=== PATIENT | female | born 1995 | race Hispanic/Latino ===

== ENCOUNTER 2016-05-04 07:24 | Emergency (ER) | payer OTHER ==
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
[2016-05-04] MEDS ORDERED: PRENTAB9 PO (10:36)
[2016-05-04] MEDS ORDERED: LAMO25TA2 PO (10:36)
[2016-05-04] MEDS ORDERED: FERR325T3 PO (10:59)
[2016-05-04] MEDS ORDERED: ZYRT10CA PO (10:59)
[2016-05-04] MEDS ORDERED: PULM1SUS INH (10:59)
[2016-05-04] MEDS ORDERED: VITA100037 PO (10:59)
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
== END 2016-05-04 08:51 | disposition home or self-care (01) ==
LOC: M ED 07:24
DX: O26.892 Other specified pregnancy related conditions, second trimester (principal); Z04.1 Encounter for examination and observation following transport accident; V43.52XA Car driver injured in collision with other type car in traffic accident, initial encounter; Y92.410 Unspecified street and highway as the place of occurrence of the external cause; Y93.89 Activity, other specified; Y99.8 Other external cause status; Z3A.27 27 weeks gestation of pregnancy; O99.012 Anemia complicating pregnancy, second trimester; D64.9 Anemia, unspecified; O99.342 Other mental disorders complicating pregnancy, second trimester; F33.9 Major depressive disorder, recurrent, unspecified; O99.512 Diseases of the respiratory system complicating pregnancy, second trimester; J30.2 Other seasonal allergic rhinitis; Z79.899 Other long term (current) drug therapy

== ENCOUNTER 2016-05-04 08:53 | Outpatient (CLI) | payer OTHER ==
[~2016-05-04] VITALS: Ht 160 cm; Wt 65.0 kg
[2016-05-04] MEDS ORDERED: ALBUTEROL 90 MCG/ACT 8GM HFA INHALER INH PRN (10:30)
[2016-05-04] MEDS ORDERED: LAMO25TA2 PO (10:36)
[2016-05-04] MEDS ORDERED: PRENTAB9 PO (10:36)
[2016-05-04 10:41] LABS: MEAN CORPUSCULAR HGB CONC 34.8 g/dl (32.0-36.5); MEAN CORPUSCULAR VOLUME 80.3 fl (80.0-96.0); RED CELL DISTRIBUTION WIDTH 14.7 % (11.5-14.5)
[2016-05-04] MEDS ORDERED: ZYRT10CA PO (10:59)
[2016-05-04] MEDS ORDERED: PULM1SUS INH (10:59)
[2016-05-04] MEDS ORDERED: FERR325T3 PO (10:59)
[2016-05-04] MEDS ORDERED: VITA100037 PO (10:59)
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
[2016-05-04 11:01] LABS: INR 0.99
[2016-05-04] MEDS: lamoTRIgine 25 MG TAB PO SCH ×2 (12:08→21:08)
[2016-05-04] MEDS: BUDESONIDE 180MCG INHALER (PULMICORT FLEXHALER) INH SCH ×2 (12:08→21:09)
[2016-05-04] MEDS: VITAMIN D (CHOLECALCIFEROL) 400 INTERNATIONAL UNITS TAB PO SCH (12:08)
[2016-05-04] MEDS: PRENATAL VITAMIN TAB PO SCH (12:08)
[2016-05-04] MEDS: FERROUS SULFATE 325MG TAB PO SCH (12:08)
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
[2016-05-04] MEDS ORDERED: PERCOCET 5MG/325MG TAB PO ONE ×2 (14:45→22:00)
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
[2016-05-04 19:52] VITALS: BP 99/52
[2016-05-04] MEDS ORDERED: CETIRIZINE (ZyrTEC) 10 MG TAB PO SCH (21:00)
[2016-05-04 21:11] VITALS: BP 107/55
[2016-05-04 22:12] VITALS: BP 100/49
[2016-05-04 23:56] VITALS: BP 107/52
[2016-05-05 06:55] VITALS: BP 108/56
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
[2016-05-05 08:26] LABS: MEAN CORPUSCULAR HEMOGLOBIN 27.7 pg (27.0-33.0); MEAN CORPUSCULAR HGB CONC 34.2 g/dl (32.0-36.5); MEAN CORPUSCULAR VOLUME 80.9 fl (80.0-96.0); RED CELL DISTRIBUTION WIDTH 14.8 % (11.5-14.5); WHITE BLOOD COUNT 7.9 K/mm3 (4.0-10.0)
[2016-05-05 08:38] LABS: INR 1.07
[2016-05-05] MEDS: BUDESONIDE 180MCG INHALER (PULMICORT FLEXHALER) INH SCH (08:59)
[2016-05-05] MEDS: VITAMIN D (CHOLECALCIFEROL) 400 INTERNATIONAL UNITS TAB PO SCH (08:59)
[2016-05-05] MEDS: lamoTRIgine 25 MG TAB PO SCH (08:59)
[2016-05-05] MEDS: PRENATAL VITAMIN TAB PO SCH (08:59)
[2016-05-05] MEDS: FERROUS SULFATE 325MG TAB PO SCH (08:59)
== END 2016-05-05 09:15 | disposition home or self-care (01) ==
LOC: M LDO 08:53
PROVIDERS: ATTEND Midwife
DX: O26.892 Other specified pregnancy related conditions, second trimester (principal); Z3A.27 27 weeks gestation of pregnancy; O99.012 Anemia complicating pregnancy, second trimester; O99.342 Other mental disorders complicating pregnancy, second trimester; F33.9 Major depressive disorder, recurrent, unspecified; O99.512 Diseases of the respiratory system complicating pregnancy, second trimester; D64.9 Anemia, unspecified; J45.909 Unspecified asthma, uncomplicated

== ENCOUNTER 2016-06-14 23:42 | Emergency (ER) | payer OTHER ==
[~2016-06-14] VITALS: Ht 160 cm; Wt 70.3 kg
[~2016-06-14 23:42] MED LIST: FERR325T3 PO; LAMO25TA2 PO; PRENTAB9 PO; PULM1SUS INH; VITA100037 PO; ZYRT10CA PO
[2016-06-15 00:46] LABS: BASO % 0.3 % (0.0-1.0); EOS # 0.2 K/mm3 (0.0-0.50); EOS % 2.2 % (0.0-3.0); LARGE UNSTAINED CELL # 0.2 K/mm3 (0.0-0.4); LARGE UNSTAINED CELL % 2.3 % (0.0-4.0); LYMPH # 1.4 K/mm3 (1.5-6.5); LYMPH % 20.6 % (24.0-44.0); MEAN CORPUSCULAR HEMOGLOBIN 27.9 pg (27.0-33.0); MEAN CORPUSCULAR VOLUME 79.9 fl (80.0-96.0); MONO # 0.4 K/mm3 (0.0-0.8); NEUTROPHILS # 4.9 K/mm3 (1.8-7.7); NEUTROPHILS % 69.7 % (36.0-66.0); PLATELET COUNT, AUTOMATED 163 k/mm3 (150-450); RED CELL DISTRIBUTION WIDTH 15.2 % (11.5-14.5)
[2016-06-15 01:09] LABS: ALBUMIN 2.5 GM/DL (3.2-5.2); ALBUMIN/GLOBULIN RATIO 0.76 (1.00-1.93); ALKALINE PHOSPHATASE 75 U/L (45-117); ALT/SGPT 18 U/L (12-78); ANION GAP 10 MEQ/L (8-16); AST/SGOT 13 U/L (15-37); BILIRUBIN,DIRECT < 0.1 MG/DL (0.0-0.2); BILIRUBIN,TOTAL 0.3 MG/DL (0.2-1.0); BLOOD UREA NITROGEN 5 MG/DL (7-18); CALCIUM LEVEL 8.2 MG/DL (8.5-10.1); CARBON DIOXIDE LEVEL 23 MEQ/L (21-32); CHLORIDE LEVEL 106 MEQ/L (98-107); CREATININE FOR GFR 0.55 MG/DL (0.55-1.02); GLOMERULAR FILTRATION RATE > 60.0 (>60); GLUCOSE, FASTING 106 MG/DL (70-105); POTASSIUM SERUM 3.4 MEQ/L (3.5-5.1); SODIUM LEVEL 139 MEQ/L (136-145); TOTAL PROTEIN 5.8 GM/DL (6.4-8.2)
[2016-06-15 02:36] VITALS: BP 99/58
== END 2016-06-15 02:47 | disposition admitted as inpatient to this hospital (09) ==
LOC: EDBD 23:42 → M ED 06-15 01:02
DX: O99.353 Diseases of the nervous system complicating pregnancy, third trimester (principal); G40.909 Epilepsy, unspecified, not intractable, without status epilepticus; Z3A.33 33 weeks gestation of pregnancy; Z79.899 Other long term (current) drug therapy; J45.909 Unspecified asthma, uncomplicated

== ENCOUNTER 2016-06-15 02:48 | Outpatient (CLI) | payer OTHER ==
[2016-06-15 03:06] VITALS: BP 89/51
[2016-06-15 03:07] VITALS: BP 95/51
[2016-06-15 03:16] VITALS: BP 104/60
--- NOTE | 2016-06-15 05:33 | DSES ---
DATE OF ADMISSION: 06/15/2016 DATE OF DISCHARGE: 06/15/2016 This 21-year-old 1, para 0 called in saying that she had an issue with lightheadedness, dizziness and localizing numbness down her right arm and this was a preemptive when she has a seizure. Her seizure history is that in September 2016 she had experienced her first seizure, her last seizure was October 2016. She had an evaluation by neurology. She has had three electroencephalograms (EEGs), she does know the results of the three EEGs but she is on medication for her seizure disorder. She is presently 33+ weeks of gestation. She also has a history of depression, anemia, asthma, and as we noted, she has significant hypotension. LABORATORY DATA: Her labs show she is O+, HIV negative, hepatitis negative, RPR negative, quad was declined, rubella immune, Varicella nonimmune. Urine negative. Gonorrhea and chlamydia negative. Cystic fibrosis (CF) was negative. She had an echogenic focus although her anatomy scan was normal. She had a 1-hour glucose which was 140 and a 3-hour GTT was normal, 78/110/102/88. EXAMINATION: GENERAL: On examination she appears in no distress. She does not appear to have any issues. She is oriented in three gutiérrez. She has a category I strip, she is not in active labor. No vaginal bleeding or discharge or loss. VITAL SIGNS: Her blood pressures are low 95/51. Subsequently blood pressures with her diastolics under 50 which may be a contributing factor to her dizziness. Pulse is 70, respirations 18, temperature 97.9. Her urine is 10/10, pH of 6, positive for glucose, negative for ketones or nitrates. Hemoglobin is 10.3, hematocrit 29.1, platelets are 163. Her electrolytes are normal. Her glucose was 106. The rest of the examination is unremarkable. She has a category I strip. HEENT/NECK: She is normocephalic, atraumatic. Neck: Full range of motion. Pupils equal and reactive to light. She responds to questions. EXTREMITIES: Distal pulses are symmetric. No evidence of deep venous thrombosis (DVT) pulmonary embolus (PE) or superficial phlebitis. CHEST: No wheezes or rhonchi. ABDOMEN: Soft. Appropriate symphysis fundus height, four quadrant bowel sounds are noted, No rashes or lesions or pruritus. No arthralgia, myalgia. No complaints of cough, wheezes, shortness of breath or dyspnea on exertion. No chest pain. She is not bleeding. She appears to be neurologically complete. No issues in the bladder. No incontinency, urgency or frequency. No nausea, vomiting, diarrhea or constipation. Her glucose is evaluation has been established she has no significant history of tobacco or alcohol, drug abuse. She is to a soldier and there is no domestic SUMMARY: In summary we have a 33 weeker who had issues with lightheadedness possibly related to hypotension. She did not have a seizure, did not lose consciousness. Her anemia is low based. She has asthma but has not had a attack recently. She carries her nebulizer with her. We have given her precautions. She is discharged to follow up with the appropriate interval. The patient was discharged undelivered.
== END 2016-06-15 04:25 | disposition home or self-care (01) ==
LOC: M LDO 02:48
PROVIDERS: ATTEND Obstetrics & Gynecology
DX: O99.89 Other specified diseases and conditions complicating pregnancy, childbirth and the puerperium (principal); R42 Dizziness and giddiness; O99.413 Diseases of the circulatory system complicating pregnancy, third trimester; I95.9 Hypotension, unspecified; O99.353 Diseases of the nervous system complicating pregnancy, third trimester; G40.909 Epilepsy, unspecified, not intractable, without status epilepticus; Z3A.33 33 weeks gestation of pregnancy; O99.343 Other mental disorders complicating pregnancy, third trimester; F33.9 Major depressive disorder, recurrent, unspecified; O99.013 Anemia complicating pregnancy, third trimester; D64.9 Anemia, unspecified; O99.513 Diseases of the respiratory system complicating pregnancy, third trimester; J45.909 Unspecified asthma, uncomplicated; Z79.899 Other long term (current) drug therapy

== ENCOUNTER 2016-11-11 06:47 | Emergency (ER) | payer OTHER ==
[~2016-11-11 06:47] MED LIST changes: -VITA100037 PO; +VITA100067 PO
[2016-11-11] MEDS ORDERED: LAMI25TA PO (07:52)
[2016-11-11] MEDS ORDERED: lamoTRIgine 100MG TAB PO ONE (08:00)
[2016-11-11] MEDS ORDERED: lamoTRIgine 25 MG TAB PO ONE (08:00)
[2016-11-11 08:03] LABS: MEAN CORPUSCULAR HEMOGLOBIN 25.9 pg (27.0-33.0); MEAN CORPUSCULAR HGB CONC 34.6 g/dl (32.0-36.5); MEAN CORPUSCULAR VOLUME 74.8 fl (80.0-96.0); RED CELL DISTRIBUTION WIDTH 14.4 % (11.5-14.5); WHITE BLOOD COUNT 5.4 K/mm3 (4.0-10.0)
[2016-11-11 08:07] LABS: ANION GAP 10 MEQ/L (8-16); BLOOD UREA NITROGEN 9 MG/DL (7-18); CARBON DIOXIDE LEVEL 23 MEQ/L (21-32); CHLORIDE LEVEL 108 MEQ/L (98-107); CREATININE FOR GFR 0.86 MG/DL (0.55-1.02); GLOMERULAR FILTRATION RATE > 60.0 (>60); GLUCOSE, FASTING 90 MG/DL (70-105); POTASSIUM SERUM 3.6 MEQ/L (3.5-5.1); SODIUM LEVEL 141 MEQ/L (136-145)
[2016-11-11 08:55] LABS: BASOPHILS 1 % (0-4); EOSINOPHILS 8 % (0-5)
--- NOTE | 2016-11-11 09:50 | REP ---
Head CT without contrast: History: Headache. Closed head injury. Comparison study: Comparison study October 11, 2015. CT findings: Bone window settings demonstrate an intact bony calvarium. There is no evidence of skull fracture or incidental bony calvarial lesion. The visualized paranasal sinuses appear clear. No intraorbital abnormality is seen. On soft tissue window setting images; the lateral, third, and fourth ventricles are normal in size and position. Aguilar-white differentiation pattern is normal above and below the tentorium. There are is no evidence of intracranial hemorrhage. No mass, edema, infarction, or midline shift is seen. No extra-axial fluid collection is appreciated. Impression: Negative noncontrast head CT. Signed by Denny Frank MD 11/11/2016 09:41 A
[2016-11-11] MEDS ORDERED: KETOROLAC 30 MG/ML VIAL (J1885) IV ONE (10:00)
[2016-11-11 10:21] VITALS: BP 100/57
== END 2016-11-11 10:23 | disposition home or self-care (01) ==
LOC: M ED 06:47 → EDBD 06:47 → M ED 10:23
DX: G40.909 Epilepsy, unspecified, not intractable, without status epilepticus (principal); J45.909 Unspecified asthma, uncomplicated; Z79.899 Other long term (current) drug therapy
CPT/HCPCS: 36415; 70450; 80048; 80175; 85007; 85027; 96374; 99284; J1885

== ENCOUNTER 2017-01-22 10:07 | Emergency (ER) | payer OTHER ==
[~2017-01-22] VITALS: Ht 160 cm; Wt 63.6 kg
[~2017-01-22 10:07] MED LIST changes: +LAMI25TA PO
[2017-01-22] MEDS ORDERED: KEPP500T13 (10:20)
[2017-01-22] MEDS ORDERED: MIREIUD (10:20)
[2017-01-22] MEDS ORDERED: TIZA4CAP3 (10:20)
[2017-01-22 13:11] LABS: BASO % 0.6 % (0.0-1.0); EOS # 0.2 10^3/uL (0.0-0.50); EOS % 3.2 % (0.0-3.0); IMMATURE GRANULOCYTE % 0.2 % (0-0); LYMPH % 38.2 % (24.0-44.0); MEAN CORPUSCULAR HEMOGLOBIN 25.1 pg (27.0-33.0); MEAN CORPUSCULAR HGB CONC 33.7 g/dl (32.0-36.5); MEAN CORPUSCULAR VOLUME 74.3 fl (80.0-96.0); MONO # 0.4 10^3/uL (0.0-0.8); MONO % 6.6 % (0.0-5.0); NEUTROPHILS # 2.7 10^3/uL (1.8-7.7); NEUTROPHILS % 51.2 % (36.0-66.0); PLATELET COUNT, AUTOMATED 272 10^3/uL (150-450); RED CELL DISTRIBUTION WIDTH 13.7 % (11.5-14.5); WHITE BLOOD COUNT 5.3 10^3/uL (4.0-10.0)
[2017-01-22 13:35] LABS: ANION GAP 7 MEQ/L (8-16); BLOOD UREA NITROGEN 7 MG/DL (7-18); CALCIUM LEVEL 9.1 MG/DL (8.5-10.1); CARBON DIOXIDE LEVEL 26 MEQ/L (21-32); CHLORIDE LEVEL 107 MEQ/L (98-107); GLOMERULAR FILTRATION RATE > 60.0 (>60); GLUCOSE, FASTING 84 MG/DL (70-105); POTASSIUM SERUM 4.1 MEQ/L (3.5-5.1); SODIUM LEVEL 140 MEQ/L (136-145)
[2017-01-22 13:50] VITALS: BP 150/69
--- NOTE | 2017-01-22 13:54 | REP ---
Bilateral renal ultrasound: There are no comparisons. The kidneys are normal size. Right kidney measures 10.0 x 4.9 x 3.8 cm. The left kidney measures 10.1 x 4.7 x 5.3 cm. There is no hydronephrosis on the right or the left. Renal cortical echogenicity is normal bilaterally. There are no renal calculi, masses or cysts on the right on the left. Impression: Essentially negative renal ultrasound. Bladder ultrasound: No bladder polyps or masses are identified. Signed by Juan Booth MD 01/22/2017 01:45 P
[2017-01-22] MEDS ORDERED: MACR100C43 PO (14:19)
== END 2017-01-22 14:24 | disposition home or self-care (01) ==
LOC: M ED 10:07
DX: N39.0 Urinary tract infection, site not specified (principal); R31.9 Hematuria, unspecified